=== PATIENT | male | born 1985 | race African-American/Black ===

== ENCOUNTER 2021-07-07 11:50 | Emergency (ER) | payer OTHER ==
[~2021-07-07] VITALS: Ht 180.3 cm; Wt 78.0 kg
--- NOTE | 2021-07-07 12:59 | NUR ---
PT IS IN ROOM #2B. DR DOMINGUEZ EVALUATED THE PT.
--- NOTE | 2021-07-07 13:12 | NUR ---
PT WAS D/C'd TO HOME. D/C INSTRUCTIONS GIVEN TO THE PT BY DR DOMINGUEZ.
[2021-07-07 13:14] VITALS: BP 139/81
== END 2021-07-07 13:15 | disposition home or self-care (01) ==
LOC: ER 11:57
DX: S93.601A Unspecified sprain of right foot, initial encounter (principal); X50.0XXA Overexertion from strenuous movement or load, initial encounter; Y93.41 Activity, dancing; Y92.89 Other specified places as the place of occurrence of the external cause
CPT/HCPCS: 73630; A4663